=== PATIENT | female | born 1975 | race Caucasian/White ===

== ENCOUNTER 2022-01-11 02:12 | Emergency (ER) | payer MEDICARE, OTHER | END 2022-01-11 10:17 | disposition home or self-care (01) | LOC: ER1 02:12 | DX: S70.11XA Contusion of right thigh, initial encounter (principal); S80.11XA Contusion of right lower leg, initial encounter; E11.9 Type 2 diabetes mellitus without complications; I10 Essential (primary) hypertension; W19.XXXA Unspecified fall, initial encounter | CPT/HCPCS: 73700; 99283 ==